=== PATIENT | female | born 1970 | race African-American/Black ===

== ENCOUNTER 2016-11-11 16:45 | Emergency (ER) | payer OTHER ==
[~2016-11-11] VITALS: Ht 177.8 cm; Wt 84.5 kg
[~2016-11-11 16:45] MED LIST: AEROECLIPSE1 EACH MC; ALBUTEROL SULF8.5 GM IH; FLONASE16 G1 BOTH NARES; HYDROCHLOROTHIA25 MG PO; LEVAQUIN500 MG PO; LEVAQUIN750 MG PO; MUCINEX600 MG PO; NAPROXEN500 MG PO; PREDNISONE20 MG PO; PREDNISONE50 MG PO; PROAIR HFA8.5 GM IH; PROVENTIL,2.5 MG/3 M IH; ULTRAM50 MG PO; VENTOLIN HFA18 GM IH
[2016-11-11] MEDS ORDERED: VENTOLIN HFA18 GM IH (18:58)
[2016-11-11] MEDS ORDERED: LEVAQUIN500 MG PO (18:58)
[2016-11-11] MEDS ORDERED: PROVENTIL,2.5 MG/3 M IH (18:58)
[2016-11-11] MEDS ORDERED: PREDNISONE20 MG PO (18:58)
[2016-11-11 19:23] VITALS: BP 150/73
== END 2016-11-11 19:26 | disposition home or self-care (01) ==
LOC: EME 16:45
DX: J33.9 Nasal polyp, unspecified (principal); J32.9 Chronic sinusitis, unspecified; J45.909 Unspecified asthma, uncomplicated; I10 Essential (primary) hypertension
CPT/HCPCS: 99281; 99284; J7512